=== PATIENT | female | born 2000 | race Caucasian/White ===

== ENCOUNTER 2025-01-14 16:27 | Emergency (ER) | payer OTHER ==
[~2025-01-14] VITALS: Ht 160 cm; Wt 72.0 kg
[2025-01-14 16:28] VITALS: O2SAT 98
[2025-01-14 16:54] VITALS: BP 104/77; PULSE 71; RESP 16; TEMP 36.7; O2SAT 99
[2025-01-15] MEDS ORDERED: AMOX1TAB16 MT (16:05)
[2025-01-15] MEDS ORDERED: IBUP-2028 MT (16:05)
== END 2025-01-14 19:55 | disposition left against medical advice (07) ==
LOC: ER 16:27
DX: J02.9 Acute pharyngitis, unspecified (principal); Z98.890 Other specified postprocedural states
CPT/HCPCS: 99282

== ENCOUNTER 2025-01-15 11:59 | Emergency (ER) | payer OTHER ==
[~2025-01-15] VITALS: Ht 154.9 cm; Wt 56.0 kg
[2025-01-15 12:14] VITALS: TEMP 36.6; O2SAT 99
[2025-01-15] MEDS: IBUPROFEN 400MG TABLET PO ONE (14:05)
[2025-01-15] MEDS ORDERED: AMOX1TAB16 MT (16:05)
[2025-01-15] MEDS ORDERED: IBUP-2028 MT (16:05)
[2025-01-15 16:29] VITALS: BP 114/81; PULSE 57; RESP 16; O2SAT 100
[2025-01-15] MEDS ORDERED: DEXAMETHASONE 4MG TABLET PO SCH (21:00)
== END 2025-01-15 16:35 | disposition home or self-care (01) ==
LOC: ER 12:37
DX: H66.92 Otitis media, unspecified, left ear (principal); M54.2 Cervicalgia; Z98.890 Other specified postprocedural states
CPT/HCPCS: 81025; 87070; 87430; 99283